=== PATIENT | male | born 1985 | race Caucasian/White ===

== ENCOUNTER 2018-01-19 21:44 | Emergency (ER) | payer OTHER ==
[~2018-01-19] VITALS: Ht 185.4 cm; Wt 81.7 kg
[~2018-01-19 21:44] MED LIST: ACYCLOVIR 400400 MG PO; CLEOCIN HCL150 MG PO; HYDROCODONE-AP1 EAC6 PO; IBUPROFEN 800800 M1 PO
[2018-01-19] MEDS ORDERED: CLEOCIN HCL150 MG PO (23:25)
[2018-01-19] MEDS ORDERED: HYDROCODONE-AP1 EAC6 PO (23:25)
[2018-01-19 23:34] VITALS: BP 115/56
== END 2018-01-19 23:36 | disposition home or self-care (01) ==
LOC: M.ERS 21:44
DX: L02.416 Cutaneous abscess of left lower limb (principal); Z88.2 Allergy status to sulfonamides

== ENCOUNTER 2019-02-23 18:05 | Emergency (ER) | payer OTHER ==
[~2019-02-23] VITALS: Ht 185.4 cm; Wt 81.7 kg
[2019-02-23] MEDS ORDERED: NOHOMEMEDICATIONS (18:24)
[2019-02-23] MEDS ORDERED: BENGAY113 GM TOP (19:32)
[2019-02-23] MEDS ORDERED: TORADOL 10 MG T10 MG PO (19:32)
[2019-02-23] MEDS ORDERED: LIDODERM1 EACH TRANSDERM (19:32)
[2019-02-23 19:59] VITALS: BP 142/92
== END 2019-02-23 19:59 | disposition home or self-care (01) ==
LOC: M.ERS 18:05
DX: M54.42 Lumbago with sciatica, left side (principal); I10 Essential (primary) hypertension; Z88.2 Allergy status to sulfonamides; Z90.49 Acquired absence of other specified parts of digestive tract

== ENCOUNTER 2019-04-05 18:59 | Emergency (ER) | payer OTHER ==
[~2019-04-05] VITALS: Ht 185.4 cm; Wt 68.0 kg
[~2019-04-05 18:59] MED LIST changes: +BENGAY113 GM TOP; +LIDODERM1 EACH TRANSDERM; +NOHOMEMEDICATIONS; +TORADOL 10 MG T10 MG PO
[2019-04-05 19:55] LABS: ABSOLUTE EOSINOPHILS 0.2 thou/uL (0.0-0.7); ABSOLUTE LYMPHOCYTES 2.3 thou/uL (0.8-5.3); ABSOLUTE MONOCYTES 0.5 thou/uL (0.0-1.2); BASOPHILS 0.5 %; EOSINOPHILS 3.4 %; HEMATOCRIT 44.9 % (42.0-52.0); HEMOGLOBIN 15.2 gm/dL (14.0-18.0); LYMPHOCYTES 32.7 %; MCH 31.8 pg (26.0-34.0); MCHC 33.9 g/dL (28.0-37.0); MCV 93.8 fL (80.0-100.0); MONOCYTES 7.1 %; MPV 10.3 fl. (7.2-11.1); NUCLEATED RBCS 0 /100WBC; PLATELET COUNT* 158 thou/uL (150-400); POLYS 56.3 %; RBC 4.79 mil/uL (4.50-6.00); RDW-CV 12.3 % (10.5-14.5); WBC 7.1 thou/uL (4.0-11.0)
[2019-04-05 20:02] LABS: ANION GAP 7 mmol/L (7-16); BUN 22 mg/dL (7-18); CALCIUM 9.6 mg/dL (8.5-10.1); CHLORIDE 102 mmol/L (98-107); CO2 36 mmol/L (21-32); CREATININE 1.1 mg/dL (0.6-1.3); GLUCOSE 82 mg/dL (70-99); POTASSIUM 3.7 mmol/L (3.5-5.1); SODIUM 145 mmol/L (136-145)
[2019-04-05 20:04] LABS: APTT 25.3 Seconds (25.0-31.3); INR 1.1; PROTIME 10.9 Seconds (9.20-11.50)
[2019-04-05 20:14] LABS: ALBUMIN 4.3 g/dL (3.4-5.0); ALKALINE PHOSPHATASE 58 U/L (46-116); SGOT 22 U/L (15-37); SGPT 27 U/L (30-65); TOTAL BILIRUBIN 0.5 mg/dL (<0.1-1.0); TOTAL PROTEIN 7.2 g/dL (6.4-8.2); TROPONIN-I LEVEL <0.06 ng/mL (<0.06)
[2019-04-05 21:13] LABS: URINE BLOOD NEGATIVE (Negative); URINE CLARITY CLEAR; URINE COLOR YELLOW; URINE GLUCOSE-RANDOM NEGATIVE (Negative); URINE KETONES TRACE (Negative); URINE LEUKOCYTES-REFLEX NEGATIVE (Negative); URINE NITRITE-REFLEX NEGATIVE (Negative); URINE PROTEIN TRACE (Negative); URINE SPECIFIC GRAVITY 1.015 (1.005-1.030)
[2019-04-05 21:14] LABS: URINE BILIRUBIN 1+ (Negative)
[2019-04-05 21:15] LABS: ICTOTEST (BILI CONFIRMATORY) Negative (Negative)
[2019-04-05 21:19] VITALS: BP 128/60
--- NOTE | 2019-04-06 14:01 | EKG ---
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: RADHA : 1985 Requested By: Morgan Ramirez Order Number: [id number] MD: Hayes Hines Measurements Intervals [place] Rate: 74 P: 58 [place]: 143 QRS: 13 QRSD: 116 T: 50 QT: 407 QTc: 452 Interpretive Statements Sinus rhythm Nonspecific intraventricular conduction delay ST elev, probable normal early repol pattern No previous ECG available for comparison Electronically Signed On 04-06-2019 14:01:33 CDT by Hayes Hines [email or web address] <ELECTRONICALLY SIGNED> By: Hayes Hines MD, [facility] 04/06/19 1401 1938 37 Hayes Hines MD, FACC /EPI
== END 2019-04-05 21:19 | disposition home or self-care (01) ==
LOC: M.ERS 18:59
PROVIDERS: Emergency Medicine Emergency Medical Services
DX: T67.0XXA Heatstroke and sunstroke, initial encounter (principal); R42 Dizziness and giddiness; R20.0 Anesthesia of skin; I10 Essential (primary) hypertension; Z88.2 Allergy status to sulfonamides; X58.XXXA Exposure to other specified factors, initial encounter; Y93.89 Activity, other specified; Y92.89 Other specified places as the place of occurrence of the external cause; Y99.8 Other external cause status

== ENCOUNTER 2020-05-06 10:25 | Emergency (ER) | payer OTHER ==
[~2020-05-06] VITALS: Ht 185.4 cm; Wt 68.0 kg
[2020-05-06] MEDS ORDERED: SUBOXONE 8 MG-1 EAC3 SUBLING (10:37)
[2020-05-06] MEDS ORDERED: CYMBALTA30 MG PO (12:08)
[2020-05-06 12:39] VITALS: BP 133/91
== END 2020-05-06 12:39 | disposition home or self-care (01) ==
LOC: M.ERS 10:25
DX: S01.511A Laceration without foreign body of lip, initial encounter (principal); I10 Essential (primary) hypertension; Z88.2 Allergy status to sulfonamides; Y08.89XA Assault by other specified means, initial encounter; Y93.89 Activity, other specified; Y92.89 Other specified places as the place of occurrence of the external cause; Y99.8 Other external cause status

== ENCOUNTER 2020-11-12 16:27 | Emergency (ER) | payer OTHER ==
[~2020-11-12] VITALS: Ht 185.4 cm; Wt 68.0 kg
[~2020-11-12 16:27] MED LIST changes: +CYMBALTA30 MG PO; +SUBOXONE 8 MG-1 EAC3 SUBLING
[2020-11-12] MEDS ORDERED: MEDROLDOSEPACK PO (17:22)
[2020-11-12] MEDS ORDERED: ZANAFLEX4 MG PO (17:22)
[2020-11-12 17:31] VITALS: BP 147/85
== END 2020-11-12 17:32 | disposition home or self-care (01) ==
LOC: M.ERS 16:27
DX: G89.29 Other chronic pain (principal); M25.552 Pain in left hip; M54.5 Low back pain; I10 Essential (primary) hypertension; Z88.2 Allergy status to sulfonamides

== ENCOUNTER 2021-06-29 11:18 | Emergency (ER) | payer OTHER ==
[~2021-06-29] VITALS: Ht 182.9 cm; Wt 70.3 kg
[~2021-06-29 11:18] MED LIST changes: +MEDROLDOSEPACK PO; +ZANAFLEX4 MG PO
[2021-06-29] MEDS ORDERED: AUGMENTIN 875-1 EACH PO (12:01)
[2021-06-29 12:23] VITALS: BP 152/94
== END 2021-06-29 12:24 | disposition home or self-care (01) ==
LOC: M.ERS 11:18
DX: R59.1 Generalized enlarged lymph nodes (principal); I10 Essential (primary) hypertension; G89.29 Other chronic pain; Z88.2 Allergy status to sulfonamides